=== PATIENT | female | born 1940 | race Caucasian/White ===

== ENCOUNTER 2017-05-18 05:53 | Emergency (ER) | payer MEDICARE ==
[~2017-05-18 05:53] MED LIST: AMB10 PO; C25; EFFEX75 PO; FISH-EPA1000 MG PO; KLONO1 PO; LORT7 PO; LUNESTA3 MG PO; MOBIC15 MG PO; PCET PO; PRAVACHOL40 MG PO
== END 2017-05-18 11:55 | disposition home or self-care (01) ==
LOC: ER 05:53
DX: S22.019A Unspecified fracture of first thoracic vertebra, initial encounter for closed fracture (principal); S22.029A Unspecified fracture of second thoracic vertebra, initial encounter for closed fracture; Z90.710 Acquired absence of both cervix and uterus; Z88.6 Allergy status to analgesic agent; Z88.2 Allergy status to sulfonamides; Z91.09 Other allergy status, other than to drugs and biological substances; Z79.899 Other long term (current) drug therapy; W01.0XXA Fall on same level from slipping, tripping and stumbling without subsequent striking against object, initial encounter
CPT/HCPCS: 70450; 72125; 72131; 72141-52; 72146-52; 72148-52; 99284